=== PATIENT | male | born 1985 | race Caucasian/White ===

== ENCOUNTER → 2018-07-23 | Outpatient (CLI) | payer OTHER ==
[~2018-07-23] MED LIST: ACIPHEX20 MG PO; CEPHALEXIN250 M1 PO; CIPRO 500MG TA500 MG PO; FLAGYL500 MG PO; FLEXERIL 1010 MG/TAB PO; PROBIOTIC FORMU1 CAP PO
== END ==
LOC: COL.RAD 07:13
DX: R10.32 Left lower quadrant pain (principal)
CPT/HCPCS: Q9967

== ENCOUNTER 2018-09-19 10:02 | Day surgery (SDC) | payer OTHER ==
[~2018-09-19] VITALS: Ht 185.4 cm; Wt 86.0 kg
[2018-09-19] MEDS ORDERED: TYLENOL 325MG325 MG PO (10:15)
[2018-09-19 10:47] VITALS: BP 128/85; PULSE 96; TEMP 98.1
[2018-09-19 11:48] VITALS: BP 118/68; PULSE 68; TEMP 97.8
[2018-09-19 12:00] VITALS: BP 120/64; PULSE 72
--- NOTE | 2018-09-19 12:10 | NUR ---
PATIENT RETURNS FROM OR VIA CART TO BAY 1. VS STARTED. GIVEN PUDDING AND APPLE JUICE. AT BEDSIDE. CALL LIGHT WITHIN REACH. WILL CONTINUE TO MONITOR.
[2018-09-19 12:15] VITALS: BP 122/78; PULSE 74
--- NOTE | 2018-09-19 12:15 | NUR ---
PATIENT TOLERATED FOOD AND DRINK. DENIES PAIN. DENIES NEEDS AT THIS TIME. CALL LIGHT WITHIN REACH. WILL CONTINUE TO MONITOR.
[2018-09-19 12:30] VITALS: BP 124/68; PULSE 72; TEMP 97.9
--- NOTE | 2018-09-19 12:30 | NUR ---
DISCHARGE INSTRUCTIONS GIVEN TO PATIENT AND . VERBALIZED UNDERSTANDING. IV DC'D. PHYSICIAN AT BEDSIDE. DECLINED WHEELCHAIR. ESCORTED AMBULATORY TO CAR.
[2018-09-19 12:52] VITALS: BP 113/49; PULSE 80
== END 2018-09-19 12:30 | disposition home or self-care (01) ==
LOC: SDCO 10:02
DX: K59.00 Constipation, unspecified (principal); K21.9 Gastro-esophageal reflux disease without esophagitis; Z83.71 Family history of colonic polyps; Z83.79 Family history of other diseases of the digestive system
CPT/HCPCS: J2250; J3010; J7030

== ENCOUNTER → 2021-05-03 | Outpatient (CLI) | payer OTHER ==
[~2021-05-03] MED LIST changes: +TYLENOL 325MG325 MG PO
== END ==
LOC: COL.RAD 07:24
DX: K76.9 Liver disease, unspecified (principal); R16.0 Hepatomegaly, not elsewhere classified